=== PATIENT | male | born 1970 | race Caucasian/White ===

== ENCOUNTER 2018-05-24 09:04 | Outpatient (REF) | payer MEDICAID, SELFPAY ==
[2018-05-24 20:11] LABS: HCT 46.2 % (40.0-50.0); HGB 15.2 g/dL (13.5-17.5)
[2018-05-24 20:32] LABS: Anion Gap 10.1 mmol/L (3-11); BUN 16 mg/dL (7-18); CO2 26.9 mmol/L (21.0-32.0); CREATININE 0.98 mg/dL (0.70-1.30); Calcium 9.2 mg/dL (8.5-10.1); Chloride 105 mmol/L (98-107); Cholesterol 245 mg/dL (50-200); Glucose 64 mg/dL (70-100); HDL Cholesterol 41 mg/dL (40-60); LDL CHOLESTEROL 170 mg/dL (<100); Potassium 4.2 mmol/L (3.5-5.1); Sodium 142 mmol/L (136-145); Triglyceride 219 mg/dL (30-150)
== END 2018-05-24 09:24 ==
LOC: NCHCN 09:04
PROVIDERS: PCP Specialist/Technologist Athletic Trainer; Visit Provider Specialist/Technologist Athletic Trainer
DX: Z13.228 Encounter for screening for other metabolic disorders (principal); Z13.1 Encounter for screening for diabetes mellitus; Z13.220 Encounter for screening for lipoid disorders; Z00.00 Encounter for general adult medical examination without abnormal findings
CPT/HCPCS: 80048; 80061; 83721; 83735; 85014; 85018

== ENCOUNTER 2018-12-14 12:06 | Outpatient (REF) | payer MEDICAID, SELFPAY ==
[2018-12-14 21:33] LABS: ALT 32 U/L (16-63); AST 21 U/L (15-37); Alkaline Phosphatase 95 U/L (46-116); Bilirubin, Direct 0.08 mg/dL (0.00-0.20); Bilirubin, Total 0.4 mg/dL (0.2-1.0); Creatine Kinase 249 U/L (39-308); Total Protein 6.8 g/dL (6.4-8.2)
[2018-12-14 21:51] LABS: LDL CHOLESTEROL 89 mg/dL (<100)
== END 2018-12-14 12:26 ==
LOC: NCHCN 12:06
PROVIDERS: PCP Specialist/Technologist Athletic Trainer; Visit Provider Specialist/Technologist Athletic Trainer
DX: E78.5 Hyperlipidemia, unspecified (principal)
CPT/HCPCS: 80076; 82550; 83721

== ENCOUNTER 2020-06-30 19:32 | Outpatient (REF) | payer MEDICAID, SELFPAY ==
[2020-06-30 17:42] LABS: Anion Gap 9.9 mmol/L (3-11); BUN 17 mg/dL (7-18); CO2 27.1 mmol/L (21.0-32.0); Calcium 9.6 mg/dL (8.5-10.1); Calculated LDL 148 mg/dL (<100); Chloride 103 mmol/L (98-107); Cholesterol 218 mg/dL (<200); Glucose 63 mg/dL (74-106); HDL Cholesterol 39 mg/dL (40-60); Potassium 4.8 mmol/L (3.5-5.1); Sodium 140 mmol/L (136-145); Triglyceride 158 mg/dL (<150)
== END 2020-06-30 19:33 | disposition home or self-care (01) ==
LOC: NCHCN 19:32
PROVIDERS: PCP Specialist/Technologist Athletic Trainer; Visit Provider Nurse Practitioner Family
DX: E78.5 Hyperlipidemia, unspecified (principal)
CPT/HCPCS: 80048; 80061

== ENCOUNTER 2020-07-09 01:25 | Outpatient (CLI) | payer MEDICAID, SELFPAY ==
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
== END 2020-07-09 01:45 ==
PROVIDERS: PCP Nurse Practitioner Family; Visit Provider Nurse Practitioner Family
DX: Z12.2 Encounter for screening for malignant neoplasm of respiratory organs (principal); F17.210 Nicotine dependence, cigarettes, uncomplicated; J98.4 Other disorders of lung
CPT/HCPCS: 71250

== ENCOUNTER 2020-08-07 13:54 | Outpatient (REF) | payer MEDICAID, SELFPAY ==
[2020-08-07 16:07] LABS: Bilirubin Negative (Negative); Blood Negative (Negative); Clarity Clear (Clear); Glucose Negative (Negative); Ketones Negative (Negative); Leukocyte Esterase Negative (Negative); Nitrite Negative (Negative); Specific Gravity 1.025 (1.005-1.025); Urobilinogen 0.2 EU/dL (Up TO 0.2); pH 5.5 (5-8)
== END 2020-08-07 13:55 | disposition home or self-care (01) ==
LOC: NCHCN 13:54
PROVIDERS: Internal Medicine Rheumatology; PCP Nurse Practitioner Family; Visit Provider Nurse Practitioner Family
DX: I77.6 Arteritis, unspecified (principal); I77.89 Other specified disorders of arteries and arterioles
CPT/HCPCS: 81003

== ENCOUNTER 2021-05-01 12:58 | Outpatient (CLI) | payer MEDICAID, SELFPAY ==
[2021-05-01 13:08] VITALS: BP 142/80; PULSE 93; RESP 20; TEMP 36.9; O2SAT 96
[2021-05-01] MEDS: Normal Saline 250 ML 30 ML IV (13:30)
[2021-05-01 13:42] VITALS: BP 128/77; PULSE 80; RESP 20; TEMP 36.1; O2SAT 95
[2021-05-01 14:18] VITALS: BP 125/79; PULSE 75; RESP 20; TEMP 37.2; O2SAT 95
[2021-05-01 15:09] VITALS: BP 128/77; PULSE 81; RESP 20; TEMP 37.1; O2SAT 96
[2021-05-01] MEDS: Normal Saline Flush 10 ML SYR IVP (15:48)
== END 2021-05-01 12:59 | disposition home or self-care (01) ==
PROVIDERS: PCP Nurse Practitioner Family; Visit Provider Family Medicine
DX: U07.1 COVID-19 (principal)
CPT/HCPCS: 96365; Q0047

== ENCOUNTER 2021-09-23 23:28 | Emergency (ER) | payer OTHER, MEDICAID, SELFPAY ==
[2021-09-23 23:33] VITALS: BP 146/76; PULSE 95; RESP 18; TEMP 36.3; O2SAT 97
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
--- NOTE | 2021-09-24 02:10 | NUR.NOTE ---
DI requisition for MRI with questionairre faxed to [facility] f/u in ED.Nursing Note:
== END 2021-09-24 01:58 | disposition home or self-care (01) ==
PROVIDERS: Emergency Provider Student in an Organized Health Care Education/Training Program; PCP Nurse Practitioner Family
DX: M54.2 Cervicalgia (principal); V40.5XXA Car driver injured in collision with pedestrian or animal in traffic accident, initial encounter
CPT/HCPCS: 99284; 70450; 72125; 99282

== ENCOUNTER → 2021-09-24 12:19 | Outpatient (CLI) | payer MEDICAID, SELFPAY ==
--- NOTE | 2021-09-24 | DI.MRI_ITS ---
Exam(s) MR CERVICAL SPINE WO EXAM: MR CERVICAL SPINE WO CLINICAL HISTORY: CALCIFIED FRAGMENTS AROUND ODONTOID PROCESS, TRAUMA VS CHRONIC TECHNIQUE: Multiplanar multisequence MRI of the cervical spine was performed without intravenous con trast. COMPARISON: Recent CT scan was reviewed. FINDINGS: CERVICOMEDULLARY JUNCTION: Intact with no evidence of cerebellar tonsillar ectopia. No obvious abnor mality of the odontoid process. No evidence of Chiari 1 malformation. CERVICAL SPINAL CORD: There is no abnormal signal in the cervical spinal cord and no evidence of foca l cord atrophy nor focal cord swelling. OSSEOUS:There are no cervical fractures evident. No significant osseous lesions in the cervical vert ebrae. There is mild straightening of the cervical curvature. INDIVIDUAL LEVELS: C2-3: No disc herniation nor central canal stenosis. No foraminal stenosis. No facet arthropathy. C3-4: Mild disc space narrowing evident at this level. There is mild symmetrical annular bulging wit hout a dominant disc herniation. Central canal dimensions are within normal limits. No facet arthro barbie evident on the right side. No significant foraminal narrowing on the right side. There are mi ld degenerative changes in the left facet joint and mild narrowing of the exiting left neural foramen . C4-5: No disc herniation nor central canal stenosis.No facet arthropathy. No foraminal stenosis C5-6: Relatively preserved disc height and signal. Central subligamentous mild annular bulging witho ut a prominent disc herniation. No central canal stenosis. Mild degenerative change in the facet rafita ints. No prominent foraminal stenosis. C6-7: Relatively preserved disc height and signal. No disc herniation or central canal stenosis. No foraminal stenosis. Minimal degenerative changes in the facet joints. C7-T1: No disc herniation nor central canal stenosis. No facet arthropathy.No foraminal stenosis. IMPRESSION: 1. Mild findings at C3-4 as described above. 2. There is no evidence of prominent disc herniation nor central spinal canal stenosis in the cervica l spine. 3. There is no abnormal signal in the cervical cord and no evidence of focal cord swelling nor focal cord atrophy. DATA REPOSITORY:
== END ==
PROVIDERS: PCP Nurse Practitioner Family; Visit Provider Student in an Organized Health Care Education/Training Program
DX: M48.02 Spinal stenosis, cervical region (principal); M50.21 Other cervical disc displacement, high cervical region; M47.812 Spondylosis without myelopathy or radiculopathy, cervical region
CPT/HCPCS: 72141

== ENCOUNTER 2021-09-24 12:30 | Emergency (ER) | payer OTHER, MEDICAID, SELFPAY ==
[2021-09-24 12:34] VITALS: BP 140/71; PULSE 76; RESP 16; TEMP 36.8; O2SAT 97
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
== END 2021-09-24 13:41 | disposition home or self-care (01) ==
PROVIDERS: Emergency Provider Physician Assistant; PCP Nurse Practitioner Family
DX: M54.2 Cervicalgia (principal); V40.5XXD Car driver injured in collision with pedestrian or animal in traffic accident, subsequent encounter; Z71.2 Person consulting for explanation of examination or test findings
CPT/HCPCS: 99282

== ENCOUNTER 2022-06-01 00:23 | Outpatient (CLI) | payer MEDICAID, SELFPAY ==
--- NOTE | 2022-06-01 08:18 | DI.CTLCSR_ITS ---
Exam(s) CT CHEST LUNG CANCER SCREEN EXAM: CT CHEST LUNG CANCER SCREEN CLINICAL HISTORY: SCREENING FOR LUNG CA, SMOKER,F17.210. TECHNIQUE: Imaging Protocol: Low Dose Technique CONTRAST MATERIAL: None COMPARISON: CT CT CHEST WO from 07/09/2020 FINDINGS: CHEST: LUNGS: There is now extensive ground-glass infiltrate in both lungs involving all lobes, not associat ed with pleural effusions.. There are no focal findings in the trachea and mainstem bronchi. Howeve r, there appears to be mild bilateral cylindrical bronchiectasis. MEDIASTINUM: There is no obvious hilar nor mediastinal adenopathy. CARDIAC: Heart size is normal. There is no pericardial effusion.Caliber of the thoracic aorta is wit hin normal limits. OTHER: No adrenal masses. OSSEOUS: No significant osseous lesions.No fractures.. IMPRESSION: 1. Compared to the prior CT scan of June 2020 there are now extensive bilateral ground-glass infiltr ates, not associated with pleural effusions nor obvious adenopathy. Suspicious for infectious etiolo gy, including Covid-19. Close follow-up recommended including repeat CT scan after appropriate clinical interval. 2. There appears to be an element of symmetrical bilateral fusiform bronchiectasis. 3. Lung rads 4A: Close follow-up including repeat CT scan in 3 months. Lung-RADS 1.0 CATEGORIES: Category 0 - Prior chest CT exam(s) being located for comparison. Category 1 - Annual screening in 12 months. No nodules or definitely benign nodules. Category 2 - Annual screening in 12 months. Benign appearance. Nodules with low likelihood of becomin g active cancer. Category 3 - 6-month follow-up. Probably benign. Short-term follow-up suggested. Nodules with low lik elihood of becoming active cancer. Category 4A - 3-month follow-up and CT/PET if >8 mm in size. Suspicious finding. Findings which requi re additional testing. Category 4B - Findings which require additional testing and tissue sampling. Category 4X - Category 3 or 4 nodules with additional features or imaging findings that increases the suspicion of malignancy. Modifier S- Potentially clinically significant findings (non lung cancer) RADIATION DOSE DELIVERED: 95.39mGy.cm Total DLP DATA REPOSITORY: All CT scans at this facility are submitted to the National Radiology Data Registry (NRDR) Dose Index Registry (DIR) with the [employer] (A[employer]). RADIATION OPTIMIZATION: All CT scans at this facility use at least one of these dose optimization te chniques: automated exposure control; mA and/or kV adjustment per patient size (includes targeted exa ms where dose is matched to clinical indication); or iterative reconstruction.
== END 2022-06-01 00:43 ==
LOC: DI 00:24
PROVIDERS: PCP Nurse Practitioner Family; Visit Provider Nurse Practitioner Family
DX: Z12.2 Encounter for screening for malignant neoplasm of respiratory organs (principal); F17.210 Nicotine dependence, cigarettes, uncomplicated; R91.8 Other nonspecific abnormal finding of lung field
CPT/HCPCS: 71271

== ENCOUNTER 2022-06-03 17:08 | Outpatient (REF) | payer MEDICAID, SELFPAY ==
[2022-06-07 21:41] LABS: p-ANCA Negative (Negative)
== END 2022-06-03 17:09 | disposition home or self-care (01) ==
LOC: NCHCN 17:08
PROVIDERS: PCP Nurse Practitioner Family; Visit Provider Nurse Practitioner Family
DX: R05.8 Other specified cough (principal); R91.8 Other nonspecific abnormal finding of lung field
CPT/HCPCS: 86255

== ENCOUNTER 2022-06-08 12:52 | Outpatient (REF) | payer MEDICAID, SELFPAY ==
[2022-06-08 10:34] LABS: ESR 41 mm/hr (0-20)
[2022-06-08 10:46] LABS: Bilirubin Negative (Negative); Blood Negative (Negative); Clarity Clear (Clear); Glucose Negative (Negative); Ketones Negative (Negative); Leukocyte Esterase Negative (Negative); Nitrite Negative (Negative); Urobilinogen 0.2 mg/dL (Up to 0.2)
[2022-06-08 10:50] LABS: C-Reactive Protein 1.57 mg/dL (0.0-0.3)
[2022-06-08 11:05] LABS: Procalcitonin < 0.1 ng/mL
[2022-06-08 19:19] LABS: Legionella Ag Detection Urine Negative (Negative)
[2022-06-10 20:06] LABS: Fungitell Qualitative Negative (Negative); Fungitell Quantitative Value <31 pg/mL (<60 pg/mL)
[2022-06-10 23:11] LABS: Streptococcus Pneumoniae Ag, U Negative (Negative)
[2022-06-11 15:04] LABS: Blastomyces Ag Result Not Detected; Blastomyces Ag Value Not Detected
[2022-06-14 08:49] LABS: Misc Referral (MAYO) See Comments
== END 2022-06-08 12:53 | disposition home or self-care (01) ==
LOC: LBN 12:52
PROVIDERS: PCP Nurse Practitioner Family; Visit Provider Student in an Organized Health Care Education/Training Program
DX: R93.89 Abnormal findings on diagnostic imaging of other specified body structures (principal)
CPT/HCPCS: 84145; 85652; 86635; 87449; 87798; 81003; 86140; 87385; 87899

== ENCOUNTER 2022-06-15 12:49 | Outpatient (REF) | payer MEDICAID, SELFPAY ==
[2022-06-15 10:12] LABS: Source Nasal/Nares
[2022-06-15 10:50] LABS: COVID-19 PCR Negative (Negative)
== END 2022-06-15 12:50 | disposition home or self-care (01) ==
LOC: NCHCN 12:49
PROVIDERS: PCP Nurse Practitioner Family; Visit Provider Physician Assistant Surgical
DX: Z11.52 Encounter for screening for COVID-19 (principal)
CPT/HCPCS: 87635

== ENCOUNTER 2022-06-16 06:01 | Day surgery (SDC) | payer MEDICAID, SELFPAY ==
[2022-06-16] VITALS (10 sets, daily range): BP systolic 89–136; BP diastolic 49–87; PULSE 67–90; RESP 14–24; TEMP 36.6–37; O2SAT 92–98; BMI 30.6
[2022-06-16] MEDS: Lactated Ringers 1,000 ML 30 ML IV (07:00)
--- NOTE | 2022-06-16 07:00 | W.ANESPRE ---
General Info Date of Service Date Performed: 06/16/22 Height: 5 ft 10 in Weight: 96.7 kg Body Mass Index (BMI): 30.6 Surgical Procedure: Operation Date: 06/16/22 07:40 Proposed Procedure Side Surgeon p Flexible Bronchoscopy w/MEGHAN Zapata MD Meds Allergies and Home Medications Allergies Allergy/AdvReac Type Severity Reaction Status Date / Time leflunomide [From Arava] Allergy Severe Anaphylaxis Verified 06/16/22 06:24 shellfish derived Allergy Severe Anaphylaxis Verified 06/16/22 06:24 Home Medication Medication Instructions Recorded prednisone 5 mg tablet 10 mg PO DAILY 11/30/12 tramadol 50 mg tablet 100 mg PO DAILY 11/30/12 bupropion HCl 150 mg 24 hr tablet, 150 tab PO DAILY 09/23/21 extended release gabapentin 600 mg tablet 600 tab PO BID 09/23/21 sulfamethoxazole 800 See Rx Instructions .Route .COMPLEX 09/23/21 mg-trimethoprim 160 mg tablet rituximab 10 mg/mL IV 06/08/22 concentrate,intravenous (Rituxan) Current Visit Medications: Current Medications Generic Name Dose Route Start Last Admin Trade Name Freq PRN Reason Stop Dose Admin Ringer's Solution 1,000 mls @ 30 mls/hr 06/16/22 06:00 IV 07/15/22 23:59 INFUSION REPLACED BY [facility] IV Miscellaneous Supplies 1 each 06/16/22 06:00 Iv Access IV 07/15/22 23:59 DIRECTED BHAVYA Sodium Chloride 0 ml 06/16/22 06:00 Normal Saline Flush 10 Ml Syr IV 07/15/22 23:59 PRN PRN Sodium Chloride 0 ml 06/16/22 06:00 Normal Saline 10 Ml Vial IJ 07/15/22 23:59 DIRECTED PRN Sterile Water 0 ml 06/16/22 06:00 Water,Injection,Sterile 10 Ml Vial IJ 07/15/22 23:59 DIRECTED PRN PFSH Active Problems Active Problems: Problem Status Onset Code Encounter for screening for COVID-[address] R93.89 Nicotine dependence, cigarettes, uncomplicated F17.210 Medical History Medical History Vasculitis Surgical History Surgical History History of vascular surgery leg surgery secondary to blood clots in leg 08/2019 Per pt. states he had 38 blood clots Tobacco Smoking/Tobacco Use Status: Current every day Tobacco Type: cigarettes Alcohol Alcohol Intake: never Substance Use Substance use: Occasionally Substance use type: marijuana Vital Signs and Lab Results Vital Signs Most Recent Vital Signs in EMR: Most Recent Vital Signs Temp Pulse Resp BP Pulse Ox 37.0 C 90 18 112/74 95 06/16/22 06:28 06/16/22 06:28 06/16/22 06:28 06/16/22 06:28 06/16/22 06:28 Lab Results Blood Type / Crossmatch: No Data to Display Complete Blood Count: No Data to Display Complete Metabolic Panel: C-Reactive Protein 1.57 mg/dL (0.0-0.3) H 06/08/22 09:45 Liver Function Panel: No Data to Display Coagulation Panel: No Data to Display Cardiac Panel: No Data to Display Arterial Blood Gas: No Data to Display Venous Blood Gas: No Data to Display Pancreas Panel: No Data to Display Thyroid Panel: No Data to Display Infectious Disease: Coronavirus (COVID-19)(PCR) Negative (Negative) 06/15/22 08:10 Coronavirus 2019 Source Nasal/Nares 06/15/22 08:10 Blood Cultures: No Data to Display Toxicology Panel: No Data to Display Anesthesia Assessment and Plan Anesthesia History Personal History: No History of Anesthesia Complications Family History: No Family History of Anesthesia Complications Exercise Tolerance Exercise Tolerance: Metabolic Equivalents<4 Pertinent Negatives Pertinent Negatives: No Symptoms of GERD and No Major Cardiovascular Symptoms or Complaints Cardiac & Pulmonary Exam Cardiac Exam: Normal S1/S2 Heart Sounds Pulmonary Exam: Clear Bilateral Breath Sounds Implantable Cardiac Device Does patient have a Pacemaker or an ICD?: No Airway Exam Known Difficult Airway: No Mallampati Class: 1 Mouth Opening: Normal (> 3cm) Thyromental Distance: Greater than 3 cm Neck Range of Motion: Full ROM Neck Circumference: Normal Teeth Condition: Removable Dentures/Plates Upper ASA Classification ASA Score: ASA 3 Emergency Case?: No NPO Status NPO Status: NPO Clears >2 hours, Solids >8 hours Anesthesia Plan Resuscitation Status: Full Code Anesthesia Technique: General Anesthesia Airway Planned: Endotracheal Tube Monitors Used: Standard Monitors Preoperative Comments:: Has been short of breath since March. Did have throat sample of fungus in December. States is SOab with minimal activity, does not use oxygen.
--- NOTE | 2022-06-16 07:50 | PAPNONF_PTH ---
PATIENT: Raul Corbett LOC: [facility] U#:[id number] AGE/SX: 51/M ROOM: RE06/16/[address]: Danyelle Zapata MD : [id number] BED: DIS: 06/16/2022 SPEC #: [id number] RECD: 06/16/22 12:58 STATUS: SHIMON REQ #: [id number] MING: 06/16/22 07:[address]: Danyelle Zapata DEPT: [facility] Cytology RECD BY: Maureen Knapp ENTERED: 06/16/22 12:58 SP TYPE: TAO GARCIA DR: Madelin Dyson Tissues: 1 - BODY FLUID CYTO(NOT S/U/N/EM)[facility] Procedures: BODY FLUID CYTO(NOT SPU/UR/NIP/ENDOM)[facility] SPECIAL STAIN 1 Comments: [id number]) (TV = 10 ml, SENT FRESH) (REFRIGERATED)
[2022-06-16] MEDS: Lidocaine 1% Pres-Free 30 ML VIAL (08:00)
--- NOTE | 2022-06-16 09:13 | W.PM.OP ---
Date of service: 06/16/22 Time of Service: 07:30 Operative Note Operative Note PRE-OP DIAGNOSIS: Abnormal chest CT Refer to Anesthesia Record Procedure Description: Bronchoscopy Indication:Abnormal chest CT Procedure performed: Flexible bronchoscopy with BAL and bronchial washings Sedation plan: General anesthesia Informed consent was obtained after the risks and benefits or the procedure were discussed. The patient was sedated by anesthesia (see separate report). After sufficient pre oxygenation, I intubated the patient with a Glydescope 3 and a 8.0 ETT after a single attempt. A proper and complete OR compliant time out was performed. The therapeutic 6.2mm Olympus bronchoscope was inserted through the endotracheal tube. The bronchoscope was inserted into the airways, where 3cc in total of 1% topical lidocaine was used the anesthetize the airways. The trachea was midline and without lesion or injury. The mucosa appeared normal and there were no signs of tracheomalacia. The jayla was sharp. All bronchial subsegments were visualized within each lobe and showed diffuse thick, white and somewhat difficult to clear mucus. There were no lesions, nodules or injuries. A bronchoalveolar lavage was performed in the RUL. A total of 120cc of saline was administered with a return of 40cc. The fluid was slightly cloudy in appearance with significant amounts of mucus plugs. The bronchoscope was then removed and the case terminated. The patient was taken to PACU in stable condition. Samples collected:BAL and bronchial washings Testing ordered:bacterial, fungal, AFB cultures, cytopathology, silver stain, extended viral respiratory panel, cell diff Complications:None Danyelle Zapata MD Pulmonary & Critical Care Medicine
--- NOTE | 2022-06-16 10:10 | W.ANESPOSTOP ---
Postoperative Evaluation Date, Time and Location Date Performed: 06/16/22 Time Performed: 10:10 Patient Location: Day Surgery Unit Vital Signs Most Recent Imported Vital Signs: Most Recent Vital Signs Temp Pulse Resp BP Pulse Ox 36.7 C 67 16 136/87 95 06/16/22 09:45 06/16/22 09:45 06/16/22 09:45 06/16/22 09:45 06/16/22 09:45 Pain Score Most Recent Pain Score: Most Recent Pain Score Pain Level 0 06/16/22 09:45 Assessment Mental Status: Awake (Alert & Oriented to Patient Baseline) Airway and Respiratory Function: Patent airway with normal (patient baseline) respiratory exam Cardiovascular Function: Hemodynamically Stable Hydration Status: Adequately Hydrated Nausea & Vomiting: No Nausea or Vomiting Pain: Pt. Denies Any Pain Peripheral Nerve Block: Patient did not receive a nerve block
[2022-06-16 23:06] LABS: Adenovirus DNA Result Negative (Negative); Metapneumovirus RNA Result Negative (Negative); Parainfluenza Type1 RNA Result Negative (Negative); Parainfluenza Type2 RNA Result Negative (Negative); Parainfluenza Type3 RNA Result Negative (Negative); Parainfluenza Type4 RNA Result Negative (Negative); Rhinovirus RNA Result Negative (Negative)
[2022-06-18 11:27] LABS: Eosinophils Fluid Relative 2 %; Lymphocytes Fluid Relative 52 %; Mono/Macrophage Fluid Relative 29 %; Neutrophils Fluid Relative 17 %
[2022-06-18 11:28] LABS: Other Cells Fluid Relative See Comments %
[2022-06-18 11:32] LABS: Gram Smear Result Neutrophils Present
[2022-07-14 08:51] LABS: Fungus Smear No Fungi Seen
== END 2022-06-16 10:12 | disposition home or self-care (01) ==
PROVIDERS: PCP Nurse Practitioner Family; Visit Provider Student in an Organized Health Care Education/Training Program
PROC: 0BJ08ZZ Inspection of Tracheobronchial Tree, Via Natural or Artificial Opening Endoscopic (ICD-10-PCS; CPT 31622; principal; 2022-06-16 07:30)
DX: R93.89 Abnormal findings on diagnostic imaging of other specified body structures (principal); F17.210 Nicotine dependence, cigarettes, uncomplicated; I77.6 Arteritis, unspecified; Z79.899 Other long term (current) drug therapy
CPT/HCPCS: 31624; 80162; 87070; 87102; 87116; 87205; 87206; 87632; 88104; 88312; J2250; J2405

== ENCOUNTER 2022-07-01 14:55 | Outpatient (CLI) | payer MEDICAID, SELFPAY ==
[2022-07-04 19:11] LABS: Result Negative; Specimen Source Sputum
[2022-07-05 15:50] LABS: Alter tenuis/alternata IgG <2.0 mcg/mL (<12.0); Aspergillus fumigatus IgG 2.1 mcg/mL (<46.0); Aureobasidium pullulans IgG <2.0 mcg/mL (<18.0); Laceyella sacchari IgG <2.0 mcg/mL (<25.0); Micropolyspora faeni IgG <2.0 mcg/mL (<5.0); Penicillium Chrysogenum IgG <2.0 mcg/mL (<22.0); Phoma betae IgG <2.0 mcg/mL (<8.0)
[2022-07-15 09:12] LABS: Coccidioides Ab Scr w/Reflex Negative (Negative)
== END 2022-07-01 14:56 | disposition home or self-care (01) ==
LOC: LBO 14:55
PROVIDERS: PCP Nurse Practitioner Family; Visit Provider Student in an Organized Health Care Education/Training Program
DX: J67.8 Hypersensitivity pneumonitis due to other organic dusts (principal); R93.89 Abnormal findings on diagnostic imaging of other specified body structures; F17.210 Nicotine dependence, cigarettes, uncomplicated; I77.6 Arteritis, unspecified; Z79.899 Other long term (current) drug therapy
CPT/HCPCS: 36415; 86001; 86635; 87798

== ENCOUNTER 2022-08-24 01:20 | Outpatient (CLI) | payer MEDICAID, SELFPAY ==
--- NOTE | 2022-08-24 08:19 | DI.CT_ITS ---
Exam(s) CT CHEST WO EXAM: CT CHEST WO CLINICAL HISTORY: f/u abnl chest ct,hypersensitivity pneumonitis,r93.89,j67.9. TECHNIQUE: Multi planar reconstructions were performed. CONTRAST MATERIAL: None COMPARISON: CT CT CHEST LUNG CANCER SCREEN from 06/01/2022 FINDINGS: CHEST: LUNGS: Bilateral asymmetric ground-glass infiltrates are again noted involving all lobes and not asso ciated with pleural effusions.. No significant mucus in the trachea and mainstem bronchi. The respe ct to the ground-glass infiltrates, these have somewhat decreased in the right upper lobe. More foca l ground-glass infiltrate is seen anteriorly in the right middle lobe. Mild improvement in the amoun t of infiltrate in the right lower lobe. In the opposite-left lung there is been decrease in amount of ground-glass infiltrate in the left upp er lobe but increase in amount of this infiltrate in the superior lingular segment. With regards to the left lower lobe, there is increase in amount in the superior segment of the left lower lobe and e xtending down into the lateral basal segment. Other basal segments are relatively spared. There are no pleural effusions on either side. MEDIASTINUM: There is no obvious hilar nor mediastinal adenopathy. Visualized thyroid unremarkable.No obvious axillary adenopathy CARDIAC: Heart size is normal. There is no pericardial effusion.Heavy coronary artery calcification noted in the left coronary artery and LAD. Caliber thoracic aorta is within normal limits. VISUALIZED UPPER ABDOMEN:No adrenal masses. OSSEOUS: No significant osseous lesions.No fractures. IMPRESSION: 1. Compared to CT scan of 06/01/2022 there are still bilateral ground-glass infiltrates both lung fie lds, somewhat improved in certain areas and worsening in other areas as described above. No other ty pes of infiltrates evident. No cavitation. No pleural effusions. No intrathoracic adenopathy evide nt. 2. There is no significant mucous in the trachea and mainstem bronchi. 3. Heavy coronary artery calcifications noted. RADIATION DOSE DELIVERED: 778.85mGy.cm Total DLP DATA REPOSITORY: All CT scans at this facility are submitted to the National Radiology Data Registry (NRDR) Dose Index Registry (DIR) with the [employer] (ACR). RADIATION OPTIMIZATION: All CT scans at this facility use at least one of these dose optimization te chniques: automated exposure control; mA and/or kV adjustment per patient size (includes targeted exa ms where dose is matched to clinical indication); or iterative reconstruction.
== END 2022-08-24 01:40 ==
LOC: DI 01:20
PROVIDERS: PCP Nurse Practitioner Family; Visit Provider Physician Assistant Surgical
DX: J67.9 Hypersensitivity pneumonitis due to unspecified organic dust (principal); R93.89 Abnormal findings on diagnostic imaging of other specified body structures
CPT/HCPCS: 71250

== ENCOUNTER 2022-09-10 01:50 | Outpatient (CLI) | payer MEDICAID, SELFPAY ==
[2022-09-10] MEDS: Albuterol HFA 18 GM 200 PUFF INH IH (09:37)
[2022-09-10] MEDS: Inhaler, Assist Device 1 EACH MC (09:37)
--- NOTE | 2022-09-10 13:06 | PFT_ITS ---
Date of service: 09/10/22 Time of Service: 08:48 Pulmonary Function Test Result Indications: COPD Interpretation Spirometry: There is no airflow limitation. There is no bronchodilator response. Lung Volumes: Normal lung volumes Diffusion Capacity: Significantly decreased diffusion Airway Pressure: Normal airways resistance. Impression No airflow obstruction but with a severely diminished diffusion (no Hb correcti on). Clinical Correlation therefore is recommended.
== END 2022-09-10 01:51 | disposition home or self-care (01) ==
PROVIDERS: PCP Nurse Practitioner Family; Visit Provider Student in an Organized Health Care Education/Training Program
DX: J44.9 Chronic obstructive pulmonary disease, unspecified (principal); J67.8 Hypersensitivity pneumonitis due to other organic dusts
CPT/HCPCS: 94060; 94726; 94729

== ENCOUNTER → 2022-11-26 00:33 | Outpatient (CLI) | payer MEDICAID, SELFPAY | PROVIDERS: PCP Nurse Practitioner Family; Visit Provider Physician Assistant Surgical | DX: J44.9 Chronic obstructive pulmonary disease, unspecified (principal); J96.91 Respiratory failure, unspecified with hypoxia | CPT/HCPCS: 93306 ==

== ENCOUNTER → 2022-11-30 00:59 | Outpatient (CLI) | payer MEDICAID, SELFPAY ==
--- NOTE | 2022-11-30 07:35 | DI.CT_ITS ---
Exam(s) CT CHEST WO EXAM: CT CHEST WO CLINICAL HISTORY: f/u abnl ct, r93.89,copd,hypersensitivity pneumonia,j67.9,j44.9 TECHNIQUE: Imaging Protocol: Axial computed tomography images with coronal and sagittal reformatted images were created and reviewed CONTRAST MATERIAL: Intravenous: Omnipaque 350 Contrast volume:structured data ml. COMPARISON: CT CT CHEST WO from 08/24/2022 FINDINGS: Pulmonary parenchyma: Significant interval improvement in size and density in previously noted bilate ral ground-glass opacities with faint residual bilateral upper and lower lobe opacities. No dominant measurable mass. Tracheobronchial tree: No bronchiectasis or mucous plugging. Mediastinum and Taylor: No dominant adenopathy or fluid collection. Pleura: No effusion or pneumothorax. Heart: The heart is not dilated. Severe coronary artery calcifications are seen. Aorta: Thoracic aorta non-dilated. Mild atherosclerotic changes. Upper abdomen: Unremarkable. Bones: Degenerative changes in the spine. Soft tissues: Unremarkable. IMPRESSION: Difficult interval improvement in bilateral infiltrates with minimal residual ground-glass opacities. No new abnormality. RADIATION DOSE DELIVERED: 654.39mGy.cm Total DLP DATA REPOSITORY: All CT scans at this facility are submitted to the National Radiology Data Registry (NRDR) Dose Index Registry (DIR) with the [employer] (ACR). RADIATION OPTIMIZATION: All CT scans at this facility use at least one of these dose optimization te chniques: automated exposure control; mA and/or kV adjustment per patient size (includes targeted exa ms where dose is matched to clinical indication); or iterative reconstruction.
== END ==
PROVIDERS: PCP Nurse Practitioner Family; Visit Provider Physician Assistant Surgical
DX: J44.9 Chronic obstructive pulmonary disease, unspecified (principal); J67.9 Hypersensitivity pneumonitis due to unspecified organic dust; R93.89 Abnormal findings on diagnostic imaging of other specified body structures
CPT/HCPCS: 71250

== ENCOUNTER → 2023-05-19 01:58 | Outpatient (CLI) | payer MEDICAID, SELFPAY ==
--- NOTE | 2023-05-19 | DI.DEXA_ITS ---
Exam(s) XR DEXA BONE DENSITY W/WO LATOYA EXAM: XR DEXA BONE DENSITY W/WO LATOYA CLINICAL HISTORY: HIGH RISK MEDICATION USE,Z79.899,CHRONIC STEROID USE,z79.52 TECHNIQUE: Routine DEXA evaluation of the lumbar spine, hip, or forearm. COMPARISON: No exams were available for comparison FINDINGS: Performed on a Hologic unit. Lateral image: No compression fracture evident. Lumbar Spine total T-score: 0.4 Hip total T-score:-0.7 Independent reading at the level of the femoral neck yields T-score of -1.3 Forearm total T-score: 0.8 IMPRESSION: Bone mineral density measures in the osteopenia range. Fracture risk is moderate. Note: Any spine fracture indicates 5x risk for subsequent spine fracture and 2x risk for subsequent h ip fracture. World Health Organization criteria for BMD interpretation classify patients: Normal...... T- Score at or above -1.0 Osteopenic... T- Score between -1.0 and -2.5 Osteoporosis... T-Score at or below -2.5
== END ==
PROVIDERS: PCP Nurse Practitioner Family; Visit Provider Internal Medicine Rheumatology
DX: Z13.820 Encounter for screening for osteoporosis (principal); Z79.899 Other long term (current) drug therapy; M81.0 Age-related osteoporosis without current pathological fracture
CPT/HCPCS: 77080

== ENCOUNTER 2023-06-27 19:58 | Outpatient (REF) | payer MEDICAID, SELFPAY ==
[2023-06-28 09:46] LABS: COVID-19 PCR Negative (Negative); Influenza A PCR Positive (Negative); Influenza B PCR Negative (Negative); RSV PCR Negative (Negative)
[2023-06-28 09:53] LABS: Source Nasopharynx
== END 2023-06-27 19:59 | disposition home or self-care (01) ==
LOC: NCHCN 19:58
PROVIDERS: PCP Nurse Practitioner Family; Visit Provider Nurse Practitioner Family
DX: R05.8 Other specified cough (principal); Z11.59 Encounter for screening for other viral diseases
CPT/HCPCS: 87631; 87637

== ENCOUNTER 2023-07-13 10:44 | Emergency (ER) | payer MEDICAID, SELFPAY ==
--- NOTE | 2023-07-13 10:45 | RT.EKG_ITS ---
APPROVED REPORT Exam: Resting ECG Reason for Exam: chest pain Patient Location: E HR:90 bpm ECG Measurements Heart Rate 90 AXIS NV 144 P 90 QRSd 162 QRS 41 QT 396 T 6 QTc 485 Conclusion Sinus rhythm...normal P axis, V-rate 60- 99 Right bundle branch block...QRSd>120, terminal axis(90,270)
[2023-07-13 10:52] VITALS: BP 160/116; PULSE 95; RESP 20; TEMP 36.3; O2SAT 98
[2023-07-13 10:56] VITALS: RESP 20
--- NOTE | 2023-07-13 11:00 | DI.CT_ITS ---
Exam(s) CT CHEST PE CTA EXAM: CT CHEST PE CTA CLINICAL HISTORY: chest pain, hx of dvt. TECHNIQUE: Imaging Protocol: Axial CT angiography was performed with multi-slice acquisition and mu lti-planar reconstructions as well as axial, coronal and sagittal MIP reconstructions. CONTRAST MATERIAL: Intravenous: Omnipaque 350 Contrast volume:100 ml COMPARISON: CT CT CHEST WO from 11/30/2022 FINDINGS: Exam is limited by respiratory motion. Pulmonary Arteries: No evidence of filling defect to suggest pulmonary emboli. Tracheobronchial tree: No mucous plugging. Mediastinum and Taylor: No dominant adenopathy or fluid collection. Pulmonary parenchyma: Expiratory changes and respiratory motion. No consolidation or dominant measur able mass. Pleura: No effusion or pneumothorax. Heart: The heart is mildly dilated. coronary artery calcifications are seen. Aorta: Thoracic aorta non-dilated. No dissection. Upper abdomen: No acute findings. Bones: Degenerative disc changes in the thoracic spine. Tubes, Catheters, and Lines: None Soft tissues: Unremarkable. IMPRESSION: No evidence of pulmonary embolism. Lungs not well evaluated due to expiratory changes and respiratory motion. RADIATION DOSE DELIVERED: Total DLP DATA REPOSITORY: All CT scans at this facility are submitted to the National Radiology Data Registry (NRDR) Dose Index Registry (DIR) with the [employer] (ACR). RADIATION OPTIMIZATION: All CT scans at this facility use at least one of these dose optimization te chniques: automated exposure control; mA and/or kV adjustment per patient size (includes targeted exa ms where dose is matched to clinical indication); or iterative reconstruction.
--- NOTE | 2023-07-13 11:04 | ED.GENADUL_ITS ---
Discharge Plan Disposition Patient Disposition: Home Condition: Stable Discharge Details Clinical Impression: Chest pain Primary Care Provider: Madelin Dyson ED Provider: Dio Baltazar Home Meds and New Rx's Prescriptions: Continued albuterol sulfate 90 mcg/actuation HFA aerosol inhaler 2 puff inhalation Q4H PRN (Reason: shortness of breath or wheezing) Qty: 8.5 12RF fluticasone propion-salmeterol [Advair HFA] 115-21 mcg/actuation HFA aerosol inhaler 2 puff inhalation BID Qty: 12 12RF Spiriva Respimat 2.5 mcg/actuation mist 2 puff inhalation DAILY Qty: 4 12RF aspirin [Adult Low Dose Aspirin] 81 mg tablet,delayed release (DR/EC) 81 mg PO DAILY Centrum Silver Ultra Men's 300-600-300 mcg tablet 1 tab PO DAILY prednisone 5 MG tablet 10 mg PO DAILY tramadol 50 MG tablet 100 mg PO DAILY gabapentin 600 mg tablet 600 tab PO BID Patient Comments: TAKE 1 TABLET BY MOUTH 3 TIMES A DAY bupropion HCl 150 mg tablet extended release 24 hr 150 tab PO DAILY Patient Comments: TAKE 1 TABLET BY MOUTH DAILY sulfamethoxazole-trimethoprim 800-160 mg tablet See Rx Instructions .ROUTE .COMPLEX Patient Comments: take 1 tablet by mouth 3 TIMES A WEEK Rx Instructions: 800-160mg Discharge Instructions Additional Instructions: Your blood work and imaging did not show concerning findings at this time Follow-up with your primary care provider within 1 week Feel more ill, have severe worsening pain or difficulty breathing return to the emergency department for reevaluation HPI General Mode of arrival: ambulatory . Date/Time Provider Initiated Documentation: 07/13/23 10:45 . Limitations to Documentation: no limitations . Information obtained by: patient . History of Present Illness 52 year old M presents to the emergency department with the chief complaint of chest pain, described as moderate, Quality is described as burning and aching, and is localized to the chest. Patient extremity. Patient started experiencing this hour(s) (5) and it has been intermittent. No relieving factors improve symptom(s), No exacerbating factors reported . Patient notes no other symptoms.; denies cough and shortness of breath. Patient did receive the following treatments prior to arrival, none Related Data Home Medications Medication Instructions Recorded Confirmed prednisone 5 mg tablet 10 mg PO DAILY 11/30/12 04/08/23 tramadol 50 mg tablet 100 mg PO DAILY 11/30/12 04/08/23 bupropion HCl 150 mg 24 hr tablet, 150 tab PO DAILY 09/23/21 04/08/23 extended release gabapentin 600 mg tablet 600 tab PO BID 09/23/21 04/08/23 sulfamethoxazole 800 See Rx Instructions .Route .COMPLEX 09/23/21 04/08/23 mg-trimethoprim 160 mg tablet [id number]-wr-[id number] 300 mcg-K 60 1 tab PO DAILY 07/14/22 04/08/23 mcg-lycop 600 mcg-lutein 300 mcg tablet (Centrum Silver Ultra Men's) albuterol sulfate 90 mcg/actuation 2 puff inhalation Q4H PRN 08/31/22 04/08/23 aerosol inhaler shortness of breath or wheezing #8.5 grams fluticasone propionate 115 2 puff inhalation BID #12 grams 09/02/22 04/08/23 mcg-salmeterol 21 mcg/actuation HFA inhaler (Advair HFA) tiotropium bromide 2.5 2 puff inhalation DAILY #4 grams 09/02/22 04/08/23 mcg/actuation mist for inhalation (Spiriva Respimat) aspirin 81 mg tablet,delayed 81 mg PO DAILY 01/03/23 04/08/23 release (Adult Low Dose Aspirin) Previous Rx's Medication Instructions Recorded albuterol sulfate 90 mcg/actuation 2 puff inhalation Q4H PRN 08/31/22 aerosol inhaler shortness of breath or wheezing #8.5 grams fluticasone propionate 115 2 puff inhalation BID #12 grams 09/02/22 mcg-salmeterol 21 mcg/actuation HFA inhaler (Advair HFA) tiotropium bromide 2.5 2 puff inhalation DAILY #4 grams 09/02/22 mcg/actuation mist for inhalation (Spiriva Respimat) Allergies Allergy/AdvReac Type Severity Reaction Status Date / Time leflunomide [From Arava] Allergy Severe Anaphylaxis Verified 04/08/23 08:23 shellfish derived Allergy Severe Anaphylaxis Verified 04/08/23 08:23 General Stated Complaint: Chest Pain BALTAZAR: 3 Review of Systems All systems reviewed & are unremarkable except as noted in HPI and below Constitutional Constitutional: Denies chills, Denies fever(s) and Denies weakness Cardiovascular Cardiovascular: Reports chest pain and Denies dyspnea Respiratory Respiratory: Denies cough and Denies dyspnea Gastrointestinal Gastrointestinal: Denies abdominal pain, Denies nausea and Denies vomiting Integumentary/Breasts Skin/Breast: Denies rash Neurologic Neurologic: Denies weakness Exam Const General: no acute distress Orientation: alert [facility] Head: normal to inspection Ears: external ears normal General nose exam: external nose normal Mouth: moist mucous membranes Eyes General: appearance normal, both eyes and all related structures Neck Neck: normal visual inspection Resp Effort & Inspection: normal respiratory effort and able to speak in complete sentences Auscultation: clear to auscultation bilaterally Cardio Jugular venous pressure: no JVD Rate: regular rate Heart Sounds: no murmurs GI Palpation: soft and nontender Skin General skin exam: no rashes or lesions noted Neuro General: patient alert and patient oriented x3 Extrem General: normal to inspection Psych Mental Status: mental status grossly normal Course Vital Signs Vital signs: Vital Signs Temperature 36.3 C L 07/13/23 10:52 Pulse 95 H 07/13/23 10:52 Respiratory Rate 20 07/13/23 10:52 Blood Pressure 160/116 H 07/13/23 10:52 Pulse Oximetry 98 07/13/23 10:52 Temperature 36.3 C L 07/13/23 10:52 Temperature Source Temporal Artery Scan 07/13/23 10:52 Pulse 95 H 07/13/23 10:52 Respiratory Rate 20 07/13/23 10:56 Respiratory Effort Normal 07/13/23 10:56 Respiratory Depth Normal 07/13/23 10:56 Respiratory Pattern Normal 07/13/23 10:56 Blood Pressure 160/116 H 07/13/23 10:52 Pulse Oximetry 98 07/13/23 10:52 Oxygen Delivery Method Room Air 07/13/23 10:52 Oxygen Flow Rate 0 07/13/23 10:52 Medical Decision Making 52-year-old male with a history of COPD and smoking, prior DVTs in his legs years ago he states was related to the [employer] COVID-vaccine, who comes in with left-sided chest pain since waking up around 4 in the morning. He says he felt well all day yesterday denies any recent fevers or chills or any other illnesses. He states the pain is aching and a burning sensation and sometimes moves to his left arm. He is alert and oriented x 4 on arrival,, has no rashes on his chest. Has clear lung sounds, no murmurs, no JVD, no leg swelling. He does have reproducible tenderness in the left chest so suspect musculoskeletal chest pain but will check a troponin, CBC, CMP, given his history of DVTs obtain a CTA of the chest to evaluate for PE. He has no tearing back pain and equal peripheral pulses so doubt dissection. Labs and imaging unremarkable, patient stable sitting in the stretcher in no distress using his phone, discussed results with him we will plan for delta troponin if negative likely discharge with follow-up with his primary care provider Delta troponin negative, patient asymptomatic, went over results with him and plan for discharge and follow-up with his primary care provider return precautions given Differential Diagnosis Differential Diagnosis: NSTEMI, chest wall pain, PE Imaging Data Radiologic Study: Attestation: I personally reviewed and interpreted this imaging study as follows: Imaging: CT Scan Radiologist's impression: No acute findings Lab Data Lab results reviewed: Yes I reviewed the patient's lab results. ECG Data Attestation: I personally reviewed and interpreted this ECG (s) as follows: Prior ECG tracings: not available for review Interpretation: sinus, rate of 90, rbbb, pr 144, no stemi Quality:SDOH Health Related Social Needs: No Data to Display PFSH All Active Problems (Updated 07/13/23 @ 13:43 by Dio Baltazar MD) Chest pain (Acute) Respiratory bronchiolitis associated interstitial lung disease (Acute) Traumatic rupture of quadriceps tendon (Acute) Partial Respiratory failure with hypoxia (Acute) COPD (chronic obstructive pulmonary disease) (Chronic) Hypersensitivity pneumonitis (Acute) Encounter for screening for COVID-19 (Acute) Abnormal chest CT (Acute) Nicotine dependence, cigarettes, uncomplicated (Acute) Medical History (Updated 07/13/23 @ 13:43 by Dio Baltazar MD) Vasculitis Surgical History History of vascular surgery leg surgery secondary to blood clots in leg 08/2019 Per pt. states he had 38 blood clots Social History Smoking/Tobacco Use Status: Current every day Tobacco Type: cigarettes Smoking risk assessment performed?: Yes Alcohol Intake: never Drug use: Occasionally Substance use type: marijuana Do you feel safe at home: Yes Do you feel safe in your relationship?: Yes
[2023-07-13 11:31] LABS: Abs Immature Grans 0.07 10^3/uL (0.0-0.06); Absolute Basophil Count 0.02 10^3/uL (0.0-0.2); Absolute Eosinophil Count 0.04 10^3/uL (0.0-0.7); Absolute Lymphocyte Count 0.81 10^3/uL (1.2-3.4); Absolute Monocyte Count 0.32 10^3/uL (0.1-0.8); Absolute Neutrophil Count 6.96 10^3/uL (1.2-6.7); Basophils % 0.2; Eosinophils % 0.5; Immature Grans % 0.9; Lymphocytes % 9.9; MCH 29.4 pg (27.0-33.0); MCHC 32.6 % (32.0-36.0); MCV 90 fL (80-95); MPV 10.2 fL (8.0-11.0); Monocytes % 3.9; Neutrophils % 84.6; Platelet Count 292 10^3/uL (130-400); RBC 4.76 10^6/uL (4.36-5.78); RDW 14.5 % (11.8-14.1); RDW-SD 47.9 fL; WBC 8.22 10^3/uL (4.4-10.8)
[2023-07-13 11:32] LABS: BE (Venous) 2 mmol/L (-2-3); HCO3 (Venous) 26 mmol/L (23-28); O2 Sat (Venous) 92 %; TCO2 (Venous) 23 mmol/L (24-29); pCO2 (Venous) 39 mmHg (41-51); pH (Venous) 7.43 (7.31-7.41); pO2 (Venous) 54 mmHg
[2023-07-13 11:46] LABS: PTT Activated 25.9 sec (23.6-32.8)
[2023-07-13 12:03] LABS: ALT 31 U/L (16-63); AST 48 U/L (15-37); Albumin 3.4 g/dL (3.4-5.0); Alkaline Phosphatase 100 U/L (46-116); Anion Gap 9.2 mmol/L (3-11); BUN 14 mg/dL (7-18); Bilirubin, Total 0.4 mg/dL (0.2-1.0); CO2 24.8 mmol/L (21.0-32.0); CREATININE 0.9 mg/dL (0.70-1.30); Calcium 9.4 mg/dL (8.5-10.1); Chloride 105 mmol/L (98-107); Estimated GFR 101.49 (mL/min/1.73m2); Glucose 106 mg/dL (74-106); Lipase 33 U/L (16-77); Magnesium 2.2 mg/dL (1.8-2.4); Potassium 5.5 mmol/L (3.5-5.1); Sodium 139 mmol/L (136-145); Troponin I < 50 ng/L (< or =60)
[2023-07-13] MEDS: Normal Saline - Diluent 50 ML VIAL IJ (12:41)
[2023-07-13] MEDS: Omnipaque 350 MG/ML 100 ML BTL IJ (12:42)
[2023-07-13 14:01] LABS: Troponin I < 50 ng/L (< or =60)
--- NOTE | 2023-07-24 12:39 | NUR.NOTE ---
in chart to check the ekg order/status Nursing Note:
--- NOTE | 2023-07-24 13:56 | NUR.NOTE ---
Accessed pt chart to reconcile EKG's to [facility] EKGs in system. Nursing Note:
--- NOTE | 2023-07-25 09:31 | NUR.NOTE ---
Accessed chart to reconcile EKG orders to EKG's in [facility]. Nursing Note:
== END 2023-07-13 14:44 | disposition home or self-care (01) ==
PROVIDERS: Emergency Provider Emergency Medicine; PCP Nurse Practitioner Family
DX: R07.9 Chest pain, unspecified (principal); I45.19 Other right bundle-branch block; J44.9 Chronic obstructive pulmonary disease, unspecified; F17.210 Nicotine dependence, cigarettes, uncomplicated; Z79.82 Long term (current) use of aspirin
CPT/HCPCS: 36415; 71275; 80053; 82805; 83690; 93005; 99285; 83735; 84484; 85025; 85610; 85730; 93010; 99284; J3490

== ENCOUNTER 2023-12-08 02:15 | Outpatient (CLI) | payer MEDICAID, SELFPAY ==
--- NOTE | 2023-12-08 | DI.CTLCSR_ITS ---
Exam(s) CT CHEST LUNG CANCER SCREEN EXAM: CT CHEST LUNG CANCER SCREEN CLINICAL HISTORY: CURRENT SMOKER, F17.210, SCREENING FOR LUNG CANCER TECHNIQUE: Imaging Protocol: Axial computed tomography images with coronal and sagittal reformatted images were created and reviewed. Low dose screening protocol. COMPARISON: CT CT CHEST PE CTA from 07/13/2023 FINDINGS: Tracheobronchial tree: No bronchiectasis or mucus plugging. Mediastinum and Taylor: No dominant adenopathy or fluid collection. Pulmonary parenchyma: No consolidation or dominant measurable mass. Mild emphysematous changes. Lung Nodules: Calcified granuloma posterior left lower lobe. Pleura: No effusion. No pneumothorax. Heart: The heart is mildly dilated. Moderate coronary artery calcifications are seen. Aorta: Thoracic aorta non-dilated. Upper abdomen: Unremarkable. Bones: Prominent osteophytes in the thoracic spine. Soft Tissues: Unremarkable. IMPRESSION: No suspicious pulmonary nodules. Lung RADS Cat 1 - Negative: No nodules and definitely benign nodules Lung-RADS 1.0 CATEGORIES: Category 0 - Prior chest CT exam(s) being located for comparison. Category 1 - Annual screening in 12 months. No nodules or definitely benign nodules. Category 2 - Annual screening in 12 months. Benign appearance. Nodules with low likelihood of becomin g active cancer. Category 3 - 6-month follow-up. Probably benign. Short-term follow-up suggested. Nodules with low lik elihood of becoming active cancer. Category 4A - 3-month follow-up and CT/PET if >8 mm in size. Suspicious finding. Findings which requi re additional testing. Category 4B - Findings which require additional testing and tissue sampling. Category 4X - Category 3 or 4 nodules with additional features or imaging findings that increases the suspicion of malignancy. Modifier S- Potentially clinically significant findings (non lung cancer) RADIATION DOSE DELIVERED: 47.19mGy.cm Total DLP DATA REPOSITORY: All CT scans at this facility are submitted to the National Radiology Data Registry (NRDR) Dose Index Registry (DIR) with the [employer] (ACR). RADIATION OPTIMIZATION: All CT scans at this facility use at least one of these dose optimization te chniques: automated exposure control; mA and/or kV adjustment per patient size (includes targeted exa ms where dose is matched to clinical indication); or iterative reconstruction.
== END 2023-12-08 02:35 ==
LOC: DI 02:16
PROVIDERS: PCP Nurse Practitioner Family; Visit Provider Nurse Practitioner Family
DX: Z12.2 Encounter for screening for malignant neoplasm of respiratory organs (principal); F17.210 Nicotine dependence, cigarettes, uncomplicated
CPT/HCPCS: 71271

== ENCOUNTER 2024-04-06 21:21 | Outpatient (REF) | payer MEDICAID, SELFPAY ==
[2024-04-06 19:55] LABS: ALT 182 U/L (16-63); AST 66 U/L (15-37); Albumin 3.1 g/dL (3.4-5.0); Alkaline Phosphatase 142 U/L (46-116); Anion Gap 7.9 mmol/L (3-11); BUN 13 mg/dL (7-18); Bilirubin, Total 0.61 mg/dL (0.2-1.0); CO2 24.1 mmol/L (21.0-32.0); CREATININE 1.1 mg/dL (0.70-1.30); Calcium 9.3 mg/dL (8.5-10.1); Chloride 103 mmol/L (98-107); Estimated GFR 79.28 (mL/min/1.73m2); Glucose 105 mg/dL (74-106); Potassium 5.6 mmol/L (3.5-5.1); Sodium 135 mmol/L (136-145); Total Protein 6.2 g/dL (6.4-8.2)
== END 2024-04-06 21:22 | disposition home or self-care (01) ==
LOC: NCHCN 21:21
PROVIDERS: PCP Nurse Practitioner Family; Visit Provider Nurse Practitioner Family
DX: Z00.00 Encounter for general adult medical examination without abnormal findings (principal)
CPT/HCPCS: 80053

== ENCOUNTER 2025-01-11 11:15 | Outpatient (REF) | payer MEDICAID, SELFPAY ==
[2025-01-11 16:14] LABS: ALT 25 U/L (16-63); AST 17 U/L (15-37); Albumin 3.7 g/dL (3.4-5.0); Alkaline Phosphatase 109 U/L (46-116); Anion Gap 10.4 mmol/L (3-11); BUN 14 mg/dL (7-18); Bilirubin, Total 0.3 mg/dL (0.2-1.0); CO2 24.6 mmol/L (21.0-32.0); Calcium 9.3 mg/dL (8.5-10.1); Calculated LDL 152 mg/dL (<100); Chloride 108 mmol/L (98-107); Cholesterol 219 mg/dL (<200); Estimated GFR 103.87 (mL/min/1.73m2); Glucose 79 mg/dL (74-106); HDL Cholesterol 35 mg/dL (>or=40); Potassium 4.2 mmol/L (3.5-5.1); Sodium 143 mmol/L (136-145); Total Protein 6.5 g/dL (6.4-8.2); Triglyceride 164 mg/dL (<150)
[2025-01-11 16:21] LABS: Hemoglobin A1C 5.0 % (<5.7)
[2025-01-11 23:44] LABS: HIV-1/2 Ag & Ab Screen Negative (Negative)
== END 2025-01-11 11:16 | disposition home or self-care (01) ==
LOC: NCHCN 11:15
PROVIDERS: PCP Nurse Practitioner Family; Visit Provider Nurse Practitioner Family
DX: Z00.00 Encounter for general adult medical examination without abnormal findings (principal); E78.5 Hyperlipidemia, unspecified
CPT/HCPCS: 80053; 80061; 87389; 83036

== ENCOUNTER 2025-02-07 15:18 | Outpatient (REF) | payer MEDICAID, SELFPAY ==
[2025-02-07 18:32] LABS: ESR 21 mm/hr (0-20)
[2025-02-07 18:33] LABS: Abs Immature Grans 0.05 10^3/uL (0.0-0.06); HCT 38.5 % (40.0-50.0); HGB 12.1 g/dL (13.5-17.5); Immature Grans % 0.5 %; MCH 28.6 pg (27.0-33.0); MCHC 31.4 % (32.0-36.0); MCV 91 fL (80-95); MPV 10.3 fL (8.0-11.0); Platelet Count 340 10^3/uL (130-400); RBC 4.23 10^6/uL (4.36-5.78); RDW 13.5 % (11.8-14.1); RDW-SD 45.3 fL; WBC 11.10 10^3/uL (4.4-10.8)
[2025-02-07 18:45] LABS: C-Reactive Protein 2.92 mg/dL (<or=0.5); Uric Acid 3.8 mg/dL (3.5-7.2)
== END 2025-02-07 15:19 | disposition home or self-care (01) ==
LOC: NCHCN 15:18
PROVIDERS: PCP Nurse Practitioner Family; Visit Provider Nurse Practitioner Family
DX: M25.569 Pain in unspecified knee (principal)
CPT/HCPCS: 85652; 84550; 85025; 86140

== ENCOUNTER → 2025-04-04 00:17 | Outpatient (CLI) | payer MEDICAID, SELFPAY ==
--- NOTE | 2025-04-04 | DI.CTLCSR_ITS ---
Exam(s) CT CHEST LUNG CANCER SCREEN EXAM: CT CHEST LUNG CANCER SCREEN CLINICAL HISTORY: SCREENING FOR LUNG CA,TOBACCO DEPENDENCE BY CIGARETTES,f17.210 TECHNIQUE: Imaging Protocol: Axial computed tomography images with coronal and sagittal reformatted images were created and reviewed. Lung Computer Aided Detection (CAD) was utilized. COMPARISON: CT CT CHEST WO from 11/30/[address] CHEST LUNG CANCER SCREEN from 12/08/2023 FINDINGS: Tracheobronchial tree: Patent where visualized. No bronchiectasis. Pulmonary parenchyma: No consolidation or dominant measurable mass. No architectural distortion. Lung Nodules: There are no suspicious pulmonary nodules. Mediastinum and Tayolr: No dominant adenopathy or fluid collection. The esophagus is unremarkable. Thyroid gland: Unremarkable. Lymph nodes: Unremarkable. Pleura: No effusion or pneumothorax. Heart: The heart is not dilated. Coronary artery calcification is present. No pericardial effusion. Aorta: Thoracic aorta non-dilated.Atherosclerotic calcification is present. Upper abdomen: Unremarkable. Soft Tissues: Unremarkable. Bones: Within normal limits. IMPRESSION: There are no suspicious pulmonary nodules. Lung RADS Cat 1 - Negative: No nodules and definitely benign nodules Lung-RADS 1.0 CATEGORIES: Category 0 - Prior chest CT exam(s) being located for comparison. Category 1 - Annual screening in 12 months. No nodules or definitely benign nodules. Category 2 - Annual screening in 12 months. Benign appearance. Nodules with low likelihood of becoming active cancer. Category 3 - 6-month follow-up. Probably benign. Short-term follow-up suggested. Nodules with low likelihood of becoming active cancer. Category 4A - 3-month follow-up and CT/PET if >8 mm in size. Suspicious finding. Findings which require additional testing. Category 4B - Findings which require additional testing and tissue sampling. Suspicious finding. Category 4X - Category 3 or 4 nodules with additional features or imaging findings that increases the suspicion of malignancy. Modifier S- Potentially clinically significant finding. (Non lung cancer) RADIATION DOSE DELIVERED: 48.45mGy.cm Total DLP 48.45mGy.cmTotal DLP DATA REPOSITORY: All CT scans at this facility are submitted to the National Radiology Data Registry (NRDR) Dose Index Registry (DIR) with the [employer] ([employer]). RADIATION OPTIMIZATION: All CT scans at this facility use at least one of these dose optimization techniques: automated exposure control; mA and/or kV adjustment per patient size (includes targeted exams where dose is matched to clinical indication); or iterative reconstruction.
== END ==
LOC: DI 00:17
PROVIDERS: PCP Nurse Practitioner Family; Visit Provider Nurse Practitioner Family
DX: F17.210 Nicotine dependence, cigarettes, uncomplicated (principal)
CPT/HCPCS: 71271